=== PATIENT | female | born 1975 | race Caucasian/White ===

== ENCOUNTER 2023-10-19 20:09 | Emergency (ER) | payer OTHER, SELFPAY ==
[2023-10-19 20:13] VITALS: BP 130/81
[2023-10-19 20:33] LABS: % Basophils 0.5 % (0-2); % Immature Granulocytes 0.2 % (0-0.5); % Lymphocytes 31.4 % (20.5-51.1); % Monocytes 5.9 % (1.7-9.3); Absolute Basophils 0.1 10^3/uL (0-0.2); Absolute Eosinophils 0.2 10^3/uL (0-0.7); Absolute Lymphocytes 3.4 10^3/uL (1.2-3.4); Absolute Monocytes 0.6 10^3/uL (0.1-0.6); Absolute Neutrophils 6.4 10^3/uL (1.4-6.5); Hematocrit 41.6 % (37.0-47.0); Hemoglobin 14.9 g/dL (12.0-16.0); Mean Corp Hgb Conc. 35.8 g/dL (33.0-37.0); Mean Corpuscular Hgb 33.6 pg (27.0-31.0); Mean Corpuscular Volume 93.9 fL (81.0-99.0); Mean Platelet Volume 8.1 fL (7.4-10.4); Nucleated Red Blood Cells % 0 %; Platelet Count 338 10^3/uL (130-400); Red Blood Cell Count 4.43 10^6/uL (4.20-5.40); Red Cell Dist. Width 13.6 % (11.5-14.5); White Blood Cell Count 10.7 10^3/uL (4.8-10.8)
[2023-10-19 20:47] LABS: HCG, Serum Qualitative Screen Negative
[2023-10-19 20:51] LABS: ALT (SGPT) 17 U/L (0-35); AST (SGOT) 19 U/L (14-36); Albumin 4.5 g/dl (3.5-5.0); Alkaline Phosphatase 90 U/L (38-126); Blood Urea Nitrogen 17 mg/dl (7-17); Calcium 9.7 mg/dl (8.4-10.2); Carbon Dioxide 25 mmol/L (22-30); Chloride 105 mmol/L (98-107); Glucose 96 mg/dl (70-99); Potassium 4.2 mmol/L (3.5-5.1); Sodium 138 mmol/L (135-145); Total Bilirubin 0.4 mg/dl (0.2-1.3); Total Protein 6.8 g/dl (6.3-8.2); eGFR > 60.00
[2023-10-19 20:55] LABS: Troponin I < 0.012 ng/ml
[2023-10-19 21:17] VITALS: BP 104/66
[2023-10-19 21:21] VITALS: BMI 32.0
--- NOTE | 2023-10-19 21:51 | ED.GENMED ---
History of Present Illness
General
Chief Complaint: Chest Pain
Source: patient
Exam Limitations: none
Time Seen by Provider: 10/19/23 21:35
History of Present Illness
History of Present Illness:
48-year-old female 2 pack-a-day smoker with history of hyperlipidemia and family history of coronary artery disease presents with chest pain intermittent since yesterday. She notes it is a squeezing sensation. She denies nausea or diaphoresis or
shortness of breath. She does note some calf discomfort and the pain radiates to her back at times. The pain is not pleuritic. She states is going through a stressful divorce. She also notes a recent flight back and forth to [place] within the
last 2 weeks. She is not anticoagulated. No other complaints at this time
Phy Exam
Physical Exam
Physical Exam:
General: Well-appearing female no acute respiratory distress
HEENT: Normocephalic atraumatic
Heart: Regular rate and rhythm no murmurs
Lungs: Clear no wheeze or rales
Abdomen soft nontender nondistended no guarding rebound normal bowel sounds
Extremities: No cyanosis or edema. No calf tenderness
Skin warm no rash or lesion
Scores
Heart Score for Chest Pain Patients
STEMI patient?: No
History: Slightly or Non-Suspicious
ECG: Normal
Age: >45 - <65 years
Risk Factors: 1 or 2 Risk Factors
Troponin: </= Normal Limit
Heart Score for Chest Pain Patients: 2
Heart Score Risk: 2.5% MACE over next 6 weeks
Course
Orders/Labs/Results
Orders:
Orders
10/19/23 20:11
Electrocardiogram (*1) Urgent
Reason for Study: Chest Pain
EKG- Treatment ONCE
10/19/23 20:12
Test Result ONCE
10/19/23 20:26
Complete Blood Count/With Diff Urgent
Comprehensive Metabolic Panel Urgent
HCG, Serum Qualitative Screen Urgent
Comment: Notify provider if positive test present
Troponin I Urgent
10/19/23 22:08
D-Dimer Urgent
10/19/23 23:17
CR Chest - 2 Views Urgent
Comment:
Reason For Exam: chest pain
Abnormal Lab Results
10/19/23
20:26
MCH 33.6 H pg
(27.0-31.0)
10/19/23 20:26
10/19/23 20:26
Vital Signs
Initial and Last Documented VS:
Initial Vital Signs
Temp Pulse Resp BP Pulse Ox
98.4 F 89 20 130/81 99
10/19/23 20:13 10/19/23 20:13 10/19/23 20:13 10/19/23 20:13 10/19/23 20:13
Last Documented Vital Signs
Temp Pulse Resp BP Pulse Ox
98.4 F 83 18 116/72 95
10/19/23 20:13 10/19/23 22:15 10/19/23 22:15 10/19/23 22:09 10/19/23 22:15
MDM/Problems Addressed
Differential Diagnosis Includes:
Chest pain. Consider ACS versus PE versus anxiety. Do not suspect dissection
EKG through triage shows sinus rhythm without ischemic changes. Troponin undetectable. Will check a D-dimer. Vital signs are stable with heart rate in the 80s and oxygen level normal.
Consider CT scan of chest if D-dimer is elevated
*Critical Care Note
Total Time (30-74mins, 75-104mins- exclusive of procedures): Not Applicable
Update Note
Update Note:
D-dimer undetectable. Chest x-ray clear. Patient appears comfortable upon reassessment. Chest pain acute but does not seem to be acute coronary syndrome PE or dissection. Stable for discharge. Patient is a smoker with strong family history of
cardiac disease. Will have patient follow-up with cardiology
ED Attending Note
-
Portions of this chart may have been created with voice recognition software.� Occasional wrong word or��sound alike� substitutions may have occurred due to the inherent limitations of voice recognition software.
Discharge Plan
Departure
Patient Disposition: Home (Routine Discharge)
Date of Disposition: 10/20/23
Time of Disposition: 00:26
Patient with high blood pressure during this ER visit?: No
Discharge Problem:
Chest pain
Instructions: Chest Pain DCA Follow Up
Referrals:
Jarod Vera MD [Family Provider] -
Activity Restrictions/Additional Instructions:
You may use ibuprofen or Tylenol if needed for pain. Return if worse otherwise follow-up with cardiology
Interventions
Interventions:
*Risk Screen - Suicide Last Done: 10/19/23 20:13
*General Assessment Last Done: 10/19/23 21:21
*Neglect/Abuse Screening Last Done: 10/19/23 20:13
ED- Fall Risk Assessment Last Done: 10/19/23 20:13
*ED COVID-19 Vaccine History Last Done: 10/19/23 21:21
ED- Cardiac Assessment Last Done: 10/19/23 21:21
Discharge Date and Time
Print Language: POLISH
[2023-10-19 22:09] VITALS: BP 116/72
[2023-10-19 23:11] LABS: D-Dimer < 0.27 ug/mlFEU (0.00-0.50)
== END 2023-10-20 00:35 | disposition home or self-care (01) ==
LOC: EMR 20:09
PROVIDERS: Physician Assistant; EMERGENCY PHYSICIAN Emergency Medicine; FAMILY PHYSICIAN Internal Medicine
DX: R07.89 Other chest pain (principal); E78.00 Pure hypercholesterolemia, unspecified; I25.10 Atherosclerotic heart disease of native coronary artery without angina pectoris; F17.200 Nicotine dependence, unspecified, uncomplicated; Z82.49 Family history of ischemic heart disease and other diseases of the circulatory system
CPT/HCPCS: 99284; 71046; 80053; 84484; 84703; 85025; 85379; 93005